=== PATIENT | female | born 1990 | race Caucasian/White ===

== ENCOUNTER 2016-11-19 20:17 | Emergency (ER) | payer MEDICAID ==
[~2016-11-19] VITALS: Ht 162.6 cm; Wt 61.2 kg
[2016-11-19 20:48] VITALS: BP 102/75
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
[2016-11-19] MEDS ORDERED: HYDROcodone/APAP 5/325MG 1 TAB TABLET PO ONE (21:30)
[2016-11-19] MEDS ORDERED: NAPROXEN 500 MG TABLET PO ONE (21:30)
[2016-11-19] MEDS ORDERED: HYDR-971 PO (21:43)
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
== END 2016-11-19 21:57 | disposition home or self-care (01) ==
LOC: ER 20:17
DX: S52.592A Other fractures of lower end of left radius, initial encounter for closed fracture (principal); S40.011A Contusion of right shoulder, initial encounter; S80.211A Abrasion, right knee, initial encounter; S50.311A Abrasion of right elbow, initial encounter; Z88.1 Allergy status to other antibiotic agents; Z91.040 Latex allergy status; V19.40XA Pedal cycle driver injured in collision with unspecified motor vehicles in traffic accident, initial encounter; Y93.55 Activity, bike riding; Y92.89 Other specified places as the place of occurrence of the external cause; Y99.8 Other external cause status
CPT/HCPCS: 29125; 73030; 73090; 73110; 99284-25